=== PATIENT | male | born 1985 | race Caucasian/White ===

== ENCOUNTER 2017-10-03 13:48 | Emergency (ER) | payer OTHER ==
[~2017-10-03] VITALS: Ht 167.6 cm; Wt 80.4 kg
[2017-10-03 13:52] VITALS: Ht 167.6 cm; Wt 80.4 kg
[2017-10-03] MEDS ORDERED: AZITHROMYCIN 250 MG TAB PO ONE (15:00)
[2017-10-03] MEDS ORDERED: CEFTRIAXONE 250 MG INJ IM ONE (15:00)
[2017-10-03 15:28] LABS: ADD UMIC NO; UR ASCORBIC ACID 20 mg/dL (NEGATIVE); UR BILIRUBIN (Dip) NEGATIVE (NEGATIVE); UR BLOOD (Dip) NEGATIVE (NEGATIVE); UR CLARITY CLEAR (CLEAR); UR COLOR YELLOW (YELLOW); UR GLUCOSE (Dip) 1+ mg/dL (NEGATIVE); UR KETONES (Dip) NEGATIVE (NEGATIVE); UR LEUKOCYTE ESTERASE (Dip) NEGATIVE Leu/ul (NEGATIVE); UR NITRITE (Dip) NEGATIVE (NEGATIVE); UR SPECIFIC GRAVITY (Dip) 1.025 (1.003-1.030); UR TOTAL PROTEIN (Dip) NEGATIVE (NEGATIVE); UR UROBILINOGEN (Dip) NEGATIVE (NEGATIVE)
[2017-10-03] MEDS ORDERED: LIDOCAINE 1% (MDV) 20 ML INJ SC ONE (15:30)
[2017-10-03] MEDS ORDERED: MUPI22OI2 TOP (16:10)
[2017-10-03] MEDS ORDERED: CLOT30CR24 TOP (16:10)
--- NOTE | 2017-10-03 17:06 | ERD ---
ER Documentation Chief Complaint Chief Complaint burning sensation in penis today HPI 32-year-old male patient with no significant past medical history presents to the ED complaining of a burning sensation while he urinates that started earlier today. States that the last time he had sexual intercourse was yesterday. Reports that he has had 15-20 sexual partners in the last 6 months. States that he feels like there is some irritation to the tip of his penis. Reports that the last time he had sexual intercourse was last night. Denies any fever, chills, penile discharge, scrotal pain, urgency, frequency, hematuria. Patient reports that he is concerned about STDs. ROS All systems reviewed and are negative except as per history of present illness. Medications Home Meds Active Scripts Clotrimazole* (Clotrimazole* AF) 1% - 30 Gm Cream.gm., 1 APPLIC TOP BID for 7 Days, TUB Prov:TRAVIS SUGGS PA-C 10/03/17 Mupirocin* (Bactroban*) 2% -22 Gram Oint...g., 1 APPLIC TOP BID for 7 Days, EA Prov:TRAVIS SUGGS PA-C 10/03/17 Allergies Allergies: Coded Allergies: No Known Allergy (Unverified , 10/03/17) PMhx/Soc Medical and Surgical Hx: pt denies Medical Hx, pt denies Surgical Hx Hx Alcohol Use: No Hx Substance Use: No Hx Tobacco Use: No Smoking Status: Never smoker Physical Exam Vitals Vital Signs Date Time Temp Pulse Resp B/P Pulse Ox O2 Delivery O2 Flow Rate FiO2 10/03/17 13:52 98.0 100 18 126/78 96 Physical Exam Const: [id number], well-nourished. In no acute distress. Head: Atraumatic, normocephalic Eyes: Normal Conjunctiva without injection. No purulent discharge. ENT: Normal external ear, nose. Moist oropharynx without tonsillar exudates. Non -erythematous pharynx. Uvula midline. No drooling. No trismus. Neck: No cervical midline tenderness. Full range of motion. No meningismus. No cervical lymphadenopathy. No JVD. Resp: Clear to auscultation bilaterally. No wheezing, rhonchi, rales, or crackles. No accessory muscle use. No retractions. Cardio: Regular rate and rhythm. No murmurs, rubs or gallops. Abd: Soft, nontender, non distended. Normal bowel sounds. No palpable masses. No rebound tenderness. No guarding. Negative McBurney's point. Negative psoas sign. Negative obturator sign. : Circumcised penis. No ecchymosis. No paraphimosis. No penile discharge. No hernias. No tenderness to palpation of the scrotum. Skin: No petechiae or rashes Back: No midline tenderness. No CVA tenderness. Ext: No cyanosis, or edema. Neur: Awake and alert. Normal gait. Normal coordination. Psych: Normal Mood and Affect Results 24 hrs Laboratory Tests Test 10/03/17 15:05 Urine Color YELLOW Urine Clarity CLEAR Urine pH 6.0 Urine Specific [place] 1.025 Urine Ketones NEGATIVEmg/dL Urine Nitrite NEGATIVEmg/dL Urine Bilirubin NEGATIVEmg/dL Urine Urobilinogen NEGATIVEmg/dL Urine Leukocyte Esterase NEGATIVELeu/ul Urine Hemoglobin NEGATIVEmg/dL Urine Glucose 1+mg/dL Urine Total Protein NEGATIVEmg/dl Chlamydia trachomatis RNA (TMA) NOT DETECTED Chlamydia/GC Comment SEE NOTE Neisseria gonorrhoeae RNA (TMA) NOT DETECTED Current Medications Medications (Trade) Dose Ordered Sig/Blanka Route PRN Reason Start Time Stop Time Status Last Admin Dose Admin Azithromycin (Zithromax) 1,000 mg ONCE ONCE PO 10/03/17 15:00 10/03/17 15:01 DC 10/03/17 15:10 Ceftriaxone Sodium (Rocephin) 250 mg ONCE ONCE IM 10/03/17 15:00 10/03/17 15:01 DC 10/03/17 15:10 Lidocaine (Xylocaine 1% (Mdv) 20 ml) 20 ml ONCE ONCE SC 10/03/17 15:30 10/03/17 15:31 DC 10/03/17 15:10 Procedures/MDM 32-year-old male patient with no significant past medical history presents to the ED complaining of a burning sensation with urination. Patient is afebrile nontoxic appearing. Patient has normal vital signs. Patient was treated here in the ED with 250 mg IM ceftriaxone for gonorrhea and 1 g erythromycin for chlamydia for prophylaxis since he is concerned about STDs and has multiple sexual partners. Urinalysis shows 1+ glucose. He was strictly instructed to follow-up with his primary care physician for further evaluation diabetes. No hematuria, nitrite, leukocyte esterase. Low suspicion for testicular torsion, gastritis, GERD, peptic ulcer disease, cholecystitis, choledocholithiasis, cholangitis, pancreatitis, appendicitis, bowel obstruction, ileus, volvulus, nephrolithiasis, pyelonephritis, hepatitis, perforated viscus, diverticulitis, abdominal hernia, acute abdomen, mesenteric ischemia or other emergent conditions. Erythema surrounding the glans penis could likely be secondary to balanitis. There is no vesicles, however if patient did see vesicles develop to follow up with PCP for anti-viral treatment. There is low suspicion for HSV. Low suspicion for Aidan's gangrene, testicular torsion, anaphylaxis, scabies, SJS /TEN, TSS, Lyme's Disease, syphilis, RMSF, shingles, disseminated gonorrhea chlamydia, DIC, TTP, ITP, erythema multiforme, sepsis, cellulitis, necrotizing fascitis, gangrene, meningococcemia, allergic contact dermatitis, urticaria, eczema, tinea infection, or other emergent conditions. Charge medications: Mupirocin, Clotrimazole Follow up with primary care physician in 1-2 days for comprehensive STD testing and evaluation for diabetes. Instructed patient to return to the ED sooner for any worsening symptoms. Patient's questions were answered. Patient understood and agreed with discharge plan. Patient discharged stable. Departure Diagnosis: Primary Impression: Burning with urination Additional Impression: Penile rash Condition: Stable Patient Instructions: Dysuria, Understanding STDs, If You Think You Have an STD , Urine Culture Referrals: [facility] YOU HAVE RECEIVED A MEDICAL SCREENING EXAM AND THE RESULTS INDICATE THAT YOU DO NOT HAVE A CONDITION THAT REQUIRES URGENT TREATMENT IN THE EMERGENCY DEPARTMENT. FURTHER EVALUATION AND TREATMENT OF YOUR CONDITION CAN WAIT UNTIL YOU ARE SEEN IN YOUR DOCTORS OFFICE WITHIN THE NEXT 1-2 DAYS. IT IS YOUR RESPONSIBILITY TO MAKE AN APPOINTMENT FOR FOLOW-UP CARE. IF YOU HAVE A PRIMARY DOCTOR --you should call your primary doctor and schedule an appointment IF YOU DO NOT HAVE A PRIMARY DOCTOR YOU CAN CALL OUR PHYSICIAN REFERRAL HOTLINE AT IF YOU CAN NOT AFFORD TO SEE A PHYSICIAN YOU CAN CHOSE FROM THE FOLLOWING [facility] [address] [facility]. [facility] [address] [facility] [facility] [address] [facility]. [facility] [address] [facility]. [facility] [address] [facility]. [facility]. [address] [facility]. [facility] YOU HAVE RECEIVED A MEDICAL SCREENING EXAM AND THE RESULTS INDICATE THAT YOU DO NOT HAVE A CONDITION THAT REQUIRES URGENT TREATMENT IN THE EMERGENCY DEPARTMENT. FURTHER EVALUATION AND TREATMENT OF YOUR CONDITION CAN WAIT UNTIL YOU ARE SEEN IN YOUR DOCTORS OFFICE WITHIN THE NEXT 1-2 DAYS. IT IS YOUR RESPONSIBILITY TO MAKE AN APPOINTMENT FOR FOLOW-UP CARE. IF YOU HAVE A PRIMARY DOCTOR --you should call your primary doctor and schedule and appointment IF YOU DO NOT HAVE A PRIMARY DOCTOR YOU CAN CALL OUR PHYSICIAN REFERRAL HOTLINE AT . IF YOU CAN NOT AFFORD TO SEE A PHYSICIAN YOU CAN CHOSE FROM THE FOLLOWING [facility] INSTITUTIONS: [facility] [address] [place] [address] [facility] [address] [place], [place] [id number] [place] [address] [address] [place] [address] [facility] Additional Instructions: FOLLOW UP WITH YOUR PRIMARY CARE PHYSICIAN TOMORROW for STD testing and further evaluation and treatment.Return to this facility if you are not improving as expected. Look out for any clear vesicles (small clear bumps on your penis) and follow up with a physician as this may indicate herpes. TRAVIS SUGGS PA-C Oct 03, 2017 17:06
== END 2017-10-03 16:25 | disposition home or self-care (01) ==
LOC: FTE 13:48
DX: R30.0 Dysuria (principal); R21 Rash and other nonspecific skin eruption
CPT/HCPCS: 81003; 87086; 87591; 96372; J0696; Z7502; Z7610

== ENCOUNTER 2017-10-10 07:11 | Emergency (ER) | payer OTHER ==
[~2017-10-10] VITALS: Ht 172.7 cm; Wt 82.0 kg
[~2017-10-10 07:11] MED LIST: CLOT30CR24 TOP; MUPI22OI2 TOP
[2017-10-10 07:12] VITALS: Ht 172.7 cm; Wt 82.0 kg
[2017-10-10 08:22] LABS: ADD UMIC NO; UR ASCORBIC ACID 40 mg/dL (NEGATIVE); UR BILIRUBIN (Dip) NEGATIVE (NEGATIVE); UR BLOOD (Dip) NEGATIVE (NEGATIVE); UR CLARITY CLEAR (CLEAR); UR COLOR YELLOW (YELLOW); UR GLUCOSE (Dip) NEGATIVE (NEGATIVE); UR KETONES (Dip) NEGATIVE (NEGATIVE); UR LEUKOCYTE ESTERASE (Dip) NEGATIVE Leu/ul (NEGATIVE); UR NITRITE (Dip) NEGATIVE (NEGATIVE); UR TOTAL PROTEIN (Dip) NEGATIVE (NEGATIVE); UR UROBILINOGEN (Dip) NEGATIVE (NEGATIVE)
[2017-10-10 08:24] LABS: UR BACTERIA FEW /HPF (NONE SEEN); UR RBC 0 /HPF (0-5)
[2017-10-10] MEDS ORDERED: DOXY100T20 PO (11:20)
[2017-10-10] MEDS ORDERED: CEFTRIAXONE 250 MG INJ IM ONE (11:30)
--- NOTE | 2017-10-10 11:32 | ERD ---
ER Documentation Chief Complaint Chief Complaint has burning when urinating had similar symptoms 3 months ago had antoinesalbadorgo HPI 32-year-old male present ED complaining of burning pain at the head of the penis for the last 2-3 days. Patient stated that the pain is constant, not related to urination. He was seen here several weeks ago for similar symptoms. Patient stated that he was told that he has STD. He received a injection and a pill while in the ED. He felt like the infection has returned. Patient states that he has not had a new sexual partners since the previous visit, and has always used a condom. Denies fever or chills. ROS All systems reviewed and are negative except as per history of present illness. Medications Home Meds Active Scripts Doxycycline Hyclate* (Doxycycline Hyclate*) 100 Mg Tablet.dr, 100 MG PO BID for 10 Days, TAB Prov:MOSHE RECINOS [employer] 10/10/17 Clotrimazole* (Clotrimazole* AF) 1% - 30 Gm Cream.gm., 1 APPLIC TOP BID for 7 Days, TUB Prov:TRAVIS SUGGS PA-C 10/03/17 Mupirocin* (Bactroban*) 2% -22 Gram Oint...g., 1 APPLIC TOP BID for 7 Days, EA Prov:TRAVIS SUGGS PA-C 10/03/17 Allergies Allergies: Coded Allergies: No Known Allergy (Unverified , 10/03/17) PMhx/Soc Medical and Surgical Hx: pt denies Medical Hx, pt denies Surgical Hx Hx Alcohol Use: No Hx Substance Use: No Hx Tobacco Use: No Smoking Status: Never smoker Physical Exam Vitals Vital Signs Date Time Temp Pulse Resp B/P Pulse Ox O2 Delivery O2 Flow Rate FiO2 10/10/17 07:12 98.0 101 118 117/76 99 Physical Exam General: Well-developed, well-nourished, conscious and coherent, in no distress Skin: Warm and dry without rash, good texture and turgor Head: Normocephalic without evidence of trauma Eyes: Sclera and conjunctivae normal; pupils equal, round, and reactive to light; extraocular movements are intact Chest: Normal AP diameter. Good expansion without retractions. Nontender. Lungs are clear to auscultate bilaterally with good tidal volume Heart: Regular rate and rhythm. No murmur, rub, or gallops heard Pelvis: Nontender to palpation and stable to compression : Circumcised male. Glans mildly erythematous, no penile discharge. Mildly tender to the left scrotum, no mass noted. No inguinal hernia. Extremities: Full range of motion. Good strength bilaterally. No clubbing, cyanosis, or edema. Peripheral pulses are intact. Sensation intact Neuro: Alert and oriented 4, GCS 15. Cranial nerves grossly intact. Motor and sensory exams nonfocal. Moves all extremities. Speech clear. Gait normal Results 24 hrs Laboratory Tests Test 10/10/17 07:59 Urine Color YELLOW Urine Clarity CLEAR Urine pH 5.0 Urine Specific [employer] 1.020 Urine Ketones NEGATIVEmg/dL Urine Nitrite NEGATIVEmg/dL Urine Bilirubin NEGATIVEmg/dL Urine Urobilinogen NEGATIVEmg/dL Urine Leukocyte Esterase NEGATIVELeu/ul Urine Microscopic RBC 0/HPF Urine Microscopic WBC 0/HPF Urine Bacteria FEW/HPF Urine Hemoglobin NEGATIVEmg/dL Urine Glucose NEGATIVEmg/dL Urine Total Protein NEGATIVEmg/dl Current Medications Medications (Trade) Dose Ordered Sig/Blanka Route PRN Reason Start Time Stop Time Status Last Admin Dose Admin Ceftriaxone Sodium (Rocephin) 250 mg ONCE ONCE IM 10/10/17 11:30 10/10/17 11:31 DC 10/10/17 11:34 PROCEDURE: US Scrotum. CLINICAL INDICATION: left testicle tender TECHNIQUE: Multiple sonographic images of the scrotal region were obtained utilizing a linear array transducer with grayscale and color-flow and a Doppler imaging. The images were reviewed on a high-resolution PACS workstation. COMPARISON: No prior studies are available for comparison. FINDINGS: The right testicle is well visualized and has a normal echotexture. No focal areas of abnormal echogenicity are visualized. The right testicle measures measures 420 x 2.2 x 3.2 cm. There is normal color-flow. The right epididymis measures 1.3 x 1.2 x 1.4 cm . There is a right epididymal cyst or spermatocele measuring 3.6 x 4.0 mm.. There is normal color-flow. The left testicle is well visualized and has a normal echotexture. No focal areas abnormal echogenicity are visualized. The left testicle measures measures 4.4 x 2.0 x 3.1 cm. There is normal color-flow. The left epididymis is heterogeneous measuring 1.6 x 2.1 x 0.9 cm. There is mild increased color-flow. 3.2 x 2.5 mm epididymal cyst is identified. There is a small hydrocele. The scrotal wall is unremarkable. No swelling or edema is seen. No other incidental abnormality is identified. IMPRESSION: No evidence of testicular torsion. Findings suggesting left epididymitis. Small left hydrocele. Bilateral epididymal cysts. Signed By: Khushi Calvert M.d 10/10/2017 9:43:10 AM Procedures/MDM Well-appearing 32-year-old male present ED complaining of burning sensation at the tip of his penis for last 2-3 days. UA is negative. I doubt he has urinary tract infection. Review of patient's medical record indicated that he is negative for chlamydia or gonorrhea from previous visit. Although patient denies new sexual partner or unprotected sex, patient is high risk since he has more than 30 sexual partners in the last 12 month. I send the urine out for repeat testing of gonorrhea and chlamydia. I suspect that the redness and burning sensation of his penis is due to a fungal infection. Patient was given clotrimazole cream on his previous visit. Advised patient to continue use a clotrimazole cream. Patient did have tenderness in the left scrotum, I suspect epididymitis. Ultrasound was obtained. Ultrasound is suggestive of epididymitis. Patient is given Rocephin 250 mg IM in the ED. Patient will also be given prescription for doxycycline. Patient appears well, stable for discharge and outpatient management. Medical decision making shared with patient and family. Education provided to patient and family. Patient and family expressed understanding of the plan. Medications on discharge: Doxycycline. Follow-up: Primary care provider in 2-3 days or return to ED if worse. Disclaimer: Inadvertent spelling and grammatical errors are likely due to EHR/ dictation software use and do not reflect on the overall quality of patient care. Also, please note that the electronic time recorded on this note does not necessarily reflect the actual time of the patient encounter. Departure Diagnosis: Primary Impression: Epididymitis Condition: Stable Patient Instructions: Epididymitis Referrals: [facility] YOU HAVE RECEIVED A MEDICAL SCREENING EXAM AND THE RESULTS INDICATE THAT YOU DO NOT HAVE A CONDITION THAT REQUIRES URGENT TREATMENT IN THE EMERGENCY DEPARTMENT. FURTHER EVALUATION AND TREATMENT OF YOUR CONDITION CAN WAIT UNTIL YOU ARE SEEN IN YOUR DOCTORS OFFICE WITHIN THE NEXT 1-2 DAYS. IT IS YOUR RESPONSIBILITY TO MAKE AN APPOINTMENT FOR FOLOW-UP CARE. IF YOU HAVE A PRIMARY DOCTOR --you should call your primary doctor and schedule an appointment IF YOU DO NOT HAVE A PRIMARY DOCTOR YOU CAN CALL OUR PHYSICIAN REFERRAL HOTLINE AT IF YOU CAN NOT AFFORD TO SEE A PHYSICIAN YOU CAN CHOSE FROM THE FOLLOWING [facility] [address] [facility] [address] [facility] [address] [facility] [address] [facility] [address] [facility]. [facility]. [address] [facility] [address] [facility] Hours: 8:00 am - 5:00 pm Additional Instructions: Call your primary care doctor TOMORROW for an appointment during the next 2-3 days.See the doctor sooner or return here if your condition worsens before your appointment time. MOSHE RECINOS NP Oct 10, 2017 11:32
--- NOTE | 2017-10-10 16:51 | RADRPT ---
PROCEDURE: US Scrotum. CLINICAL INDICATION: left testicle tender TECHNIQUE: Multiple sonographic images of the scrotal region were obtained utilizing a linear arra y transducer with grayscale and color-flow and a Doppler imaging. The images were reviewed on a high -resolution PACS workstation. COMPARISON: No prior studies are available for comparison. FINDINGS: The right testicle is well visualized and has a normal echotexture. No focal areas of abnormal echog enicity are visualized. The right testicle measures measures 420 x 2.2 x 3.2 cm. There is normal col or-flow. The right epididymis measures 1.3 x 1.2 x 1.4 cm . There is a right epididymal cyst or sper matocele measuring 3.6 x 4.0 mm.. There is normal color-flow. The left testicle is well visualized and has a normal echotexture. No focal areas abnormal echogenic ity are visualized. The left testicle measures measures 4.4 x 2.0 x 3.1 cm. There is normal color-fl ow. The left epididymis is heterogeneous measuring 1.6 x 2.1 x 0.9 cm. There is mild increased colo r-flow. 3.2 x 2.5 mm epididymal cyst is identified. There is a small hydrocele. The scrotal wall is unremarkable. No swelling or edema is seen. No other incidental abnormality is identified. IMPRESSION: No evidence of testicular torsion. Findings suggesting left epididymitis. Small left hydrocele. Bilateral epididymal cysts. Physician Alexa Date Time Electronically viewed and signed by Physician Alexa on 10/10/2017 09:43 /
== END 2017-10-10 11:40 | disposition home or self-care (01) ==
LOC: FTE 07:11
DX: N45.1 Epididymitis (principal)
CPT/HCPCS: 76870; 81003; 87591; 96372; J0696; Z7502